=== PATIENT | male | born 1965 | race Caucasian/White ===

== ENCOUNTER 2018-01-07 09:26 | Emergency (ER) | payer MEDICAID ==
[~2018-01-07] VITALS: Ht 175.3 cm; Wt 96.7 kg
[2018-01-07] MEDS ORDERED: KETOROLAC 30 MG/1 ML IM ONE (10:30)
[2018-01-07] MEDS ORDERED: DIAZEPAM 5 MG TABLET PO ONE (10:30)
[2018-01-07] MEDS ORDERED: KETOROLAC 30 MG/1 ML ONE (10:53)
[2018-01-07] MEDS ORDERED: DIAZEPAM 5 MG TABLET ONE (10:53)
[2018-01-07 12:19] VITALS: BP 120/63
[2018-01-07] MEDS ORDERED: HYDROcodone/APAP 5/325 TABLET ONE (13:14)
[2018-01-07] MEDS ORDERED: HYDROcodone/APAP 5/325 TABLET PO ONE (13:30)
== END 2018-01-07 13:42 | disposition home or self-care (01) ==
LOC: ED 13:36
DX: S39.012A Strain of muscle, fascia and tendon of lower back, initial encounter (principal); M50.222 Other cervical disc displacement at C5-C6 level; M50.223 Other cervical disc displacement at C6-C7 level; M51.16 Intervertebral disc disorders with radiculopathy, lumbar region; M48.061 Spinal stenosis, lumbar region without neurogenic claudication; F17.210 Nicotine dependence, cigarettes, uncomplicated; G89.29 Other chronic pain; Y93.89 Activity, other specified; Y92.89 Other specified places as the place of occurrence of the external cause; Y99.8 Other external cause status; Z59.0 Homelessness; X58.XXXA Exposure to other specified factors, initial encounter
CPT/HCPCS: 72141; 72148; 96372; 99284; J1885